=== PATIENT | female | born 1970 | race Caucasian/White ===

== ENCOUNTER 2016-03-31 10:27 | Observation (INO) | payer OTHER, BC ==
[~2016-03-31] VITALS: Ht 157.5 cm; Wt 75.0 kg
[~2016-03-31 10:27] MED LIST: ADDE15TA PO; BENT20TA PO; BUPR300T PO; CLON0.5T PO; CYMB60CA PO; HYDR-3583 PO; LEVO.075 PO; SOMA350T PO; ULTR50TA5 PO
[2016-03-31 10:32] VITALS: BP 112/74; PULSE 79; RESP 18; TEMP 98.4
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
[2016-03-31 12:00] VITALS: BP 118/76; PULSE 78; RESP 17; O2SAT 96
[2016-03-31 13:45] VITALS: BP 124/80; PULSE 74; RESP 18; O2SAT 97
[2016-03-31] MEDS ORDERED: LORazepam 2 MG/ML VIAL IV PUSH ONE (16:30)
[2016-03-31] MEDS ORDERED: NALOXONE HCL 0.4 MG/ML AMP IV PRN (17:45)
[2016-03-31] MEDS ORDERED: PROMETHAZINE INJ 25 MG/ML VIAL IM PRN (18:00)
[2016-03-31] MEDS ORDERED: ACETAMINOPHEN/HYDROcodone 325 MG/5 MG TAB PO PRN (18:00)
[2016-03-31] MEDS: DICYCLOMINE HCL 20 MG TAB PO SCH (18:49)
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
[2016-03-31 20:22] VITALS: BP 139/83; PULSE 84; RESP 18; O2SAT 100
[2016-03-31] MEDS: ONDANSETRON HCL 4 MG/2 ML VIAL IV PRN (20:46)
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
[2016-03-31] MEDS: DULoxetine HCl DR 60 MG CAP PO SCH (23:24)
[2016-03-31] MEDS: buPROPion HCL 150 MG SUSTAINED RELEASE TAB PO SCH (23:24)
[2016-03-31] MEDS: ACETAMINOPHEN/HYDROcodone 325 MG/10 MG TAB PO PRN (23:48)
[2016-04-01] VITALS (7 sets, daily range): BP systolic 103–165; BP diastolic 61–91; PULSE 75–98; RESP 18–20; TEMP 97.4–98.9; O2SAT 96–100
[2016-04-01] MEDS: clonazePAM 0.5 MG TAB PO PRN ×2 (01:31→11:26)
[2016-04-01] MEDS: ACETAMINOPHEN/HYDROcodone 325 MG/10 MG TAB PO PRN ×3 (03:58→22:47)
[2016-04-01] MEDS: LEVOTHYROXINE SODIUM 75 MCG TAB PO SCH (05:28)
[2016-04-01] MEDS: ONDANSETRON HCL 4 MG/2 ML VIAL IV PRN (05:28)
[2016-04-01] MEDS ORDERED: buPROPion HCL 150 MG EXTENDED RELEASE TAB PO SCH (09:00)
[2016-04-01] MEDS ORDERED: INFLUENZA VIRUS VACCINE (QUADRIVALENT) 0.5 ML SYR IM ONE (09:00)
[2016-04-01] MEDS: DICYCLOMINE HCL 20 MG TAB PO SCH ×3 (11:17→17:18)
[2016-04-01] MEDS: PANTOPRAZOLE SOD 40 MG DELAYED RELEASE TAB PO SCH (11:18)
[2016-04-01] MEDS: buPROPion HCL 150 MG SUSTAINED RELEASE TAB PO SCH ×2 (11:19→22:46)
[2016-04-01] MEDS: CARISOPRODOL 350 MG TAB PO PRN ×2 (11:26→17:19)
[2016-04-01] MEDS: DEXTROAMPHETAMINE/AMPHETAMINE 5 MG TAB PO SCH (14:05)
[2016-04-01] MEDS: DULoxetine HCl DR 60 MG CAP PO SCH (22:46)
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
[2016-04-02] MEDS: ALPRAZolam 0.5 MG TAB PO PRN ×2 (00:21→12:44)
[2016-04-02] MEDS: clonazePAM 0.5 MG TAB PO PRN (03:43)
[2016-04-02 03:59] VITALS: BP 105/60; PULSE 80; RESP 19; TEMP 98.1; O2SAT 98
[2016-04-02] MEDS: LEVOTHYROXINE SODIUM 75 MCG TAB PO SCH (06:14)
[2016-04-02 08:00] VITALS: BP 120/70; PULSE 85; RESP 20; TEMP 97.7; O2SAT 97
[2016-04-02] MEDS: buPROPion HCL 150 MG SUSTAINED RELEASE TAB PO SCH (09:16)
[2016-04-02] MEDS: PANTOPRAZOLE SOD 40 MG DELAYED RELEASE TAB PO SCH (09:16)
[2016-04-02] MEDS: DICYCLOMINE HCL 20 MG TAB PO SCH ×2 (09:16→12:44)
[2016-04-02] MEDS: DEXTROAMPHETAMINE/AMPHETAMINE 5 MG TAB PO SCH (09:16)
[2016-04-02 12:00] VITALS: BP 114/74; PULSE 87; RESP 20; TEMP 97.8; O2SAT 97
[2016-04-02] MEDS: ONDANSETRON HCL 4 MG/2 ML VIAL IV PRN (12:44)
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
[2016-04-02 16:00] VITALS: BP 106/59; PULSE 89; RESP 20; TEMP 97.6; O2SAT 99
--- NOTE | 2016-04-02 16:26 | HHI.DCPOC ---
Discharge Care Plan Diagnosis: (1) Adjustment disorder with disturbance of emotion Your Health Problems Are: Anxiety Goals to Promote Your Health * To prevent worsening of your condition and complications * To maintain your health at the optimal level Directions to Meet Your Goals Take your medications as prescribed Follow your dietary instruction Follow activity as directed Keep your appointments as scheduled Take your immunizations and boosters as scheduled If your symptoms worsen call your PCP, if no PCP go to Urgent Care Center or Emergency Room Smoking is Dangerous to Your Health. Avoid second hand smoke Call the 24-hour hour crisis hotline for domestic abuse at Haider Slade MD Apr 02, 2016 16:26
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
== END 2016-04-02 18:35 | disposition home or self-care (01) ==
LOC: NEPC 10:27 → NEDA 18:13 → NEPGCP 23:29 → OBSVTOIN 04-01 23:49 → INTOOBSV 04-01 23:49
PROVIDERS: ADMIT Neurological Surgery; ATTEND Neurological Surgery
DX: S06.6X0A Traumatic subarachnoid hemorrhage without loss of consciousness, initial encounter (principal); F07.81 Postconcussional syndrome; I10 Essential (primary) hypertension; E86.0 Dehydration; E03.9 Hypothyroidism, unspecified; F32.9 Major depressive disorder, single episode, unspecified; F41.9 Anxiety disorder, unspecified; F43.20 Adjustment disorder, unspecified; Z87.442 Personal history of urinary calculi; V89.2XXA Person injured in unspecified motor-vehicle accident, traffic, initial encounter; Z23 Encounter for immunization
CPT/HCPCS: 70551; 90686; 94150; 96374; 97161; 99285; G0378; G8987; G8988; J2060; J2405; Q2038

== ENCOUNTER 2016-04-03 18:12 | Emergency (ER) | payer OTHER, BC ==
[~2016-04-03] VITALS: Ht 157.5 cm; Wt 77.0 kg
[2016-04-03 19:40] VITALS: BP 156/82; PULSE 90; RESP 16; TEMP 98; O2SAT 100
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
[2016-04-03 23:13] VITALS: BP 146/76; PULSE 82; RESP 18; O2SAT 100
== END 2016-04-03 23:14 | disposition home or self-care (01) ==
LOC: NEPE 18:12
DX: F07.81 Postconcussional syndrome (principal); V49.40XA Driver injured in collision with unspecified motor vehicles in traffic accident, initial encounter
CPT/HCPCS: 70450

== ENCOUNTER 2016-06-26 02:33 | Emergency (ER) | payer SELFPAY ==
[~2016-06-26] VITALS: Ht 157.5 cm; Wt 79.0 kg
[~2016-06-26 02:33] MED LIST changes: -BENT20TA PO
[2016-06-26 02:44] VITALS: BP 125/93; PULSE 97; RESP 18; TEMP 98.4; O2SAT 100
[2016-06-26] MEDS ORDERED: SODIUM CHLORIDE 0.9% FLUSH 10 ML FLUSH IV FLUSH PRN (03:00)
[2016-06-26] MEDS ORDERED: SODIUM CHLOR 0.9% 1000 ML INJ 1,000 ML IV SCH (03:00)
[2016-06-26 03:04] VITALS: BP 125/93; PULSE 97; RESP 18; TEMP 98.4; O2SAT 100
--- NOTE | 2016-06-26 03:07 | PD ---
HPI Chief Complaint: abdominal pain, vaginal discharge Time Seen by Provider: 03:00 Travel History International Travel<30 days: No Contact w/Intl Traveler<30days: No Traveled to known affect area: No History of Present Illness HPI 45-year-old female patient with history of hysterectomy, presents to the ER today because she states that she has been having 3 weeks' history of lower abdominal pains which she currently rates at a 8 out of 10, dizziness, mild disorientation, headache, and states that she recently had vaginal discharge and spotting even though she's had a hysterectomy. She has been having some burning on urination as well. She denies any fevers, vomiting, or other issues. Modifying Factors: None Associated Signs & Symptoms: Lower abdominal pains, dizziness, headaches, vaginal discharge and spotting Risk Factors: None PFSH Past Medical History Hx Anticoagulant Therapy: Yes ADD: Yes Anemia: Yes Asthma: No Anxiety: Yes Depression: No Heart Rhythm Problems: No Cancer: No Cardiac Catheterization: Yes (02/2011 NEGATIVE) Cardiovascular Problems: Yes (CATH X2) High Cholesterol: No Chemotherapy: No Chest Pain: Yes Congestive Heart Failure: No COPD: No Cerebrovascular Accident: No Diabetes: No Diminished Hearing: No Diverticulitis: Yes Endocrine: Yes Gastrointestinal Disorders: Yes GERD: No Genitourinary: No Headaches: Yes Hiatal Hernia: No Herniated Disk: Yes Hypertension: Yes Immune Disorder: No Implanted Vascular Access Dvce: Yes Kidney Stones: Yes Musculoskeletal: Yes (Chronic back pain) Neurologic: Yes Psychiatric: Yes Reproductive: Yes (ovarian cyst) Respiratory: No Immunizations Current: No Migraines: Yes Pneumonia: Yes Seizures: No Sleep Apnea: No Thyroid Disease: Yes (Hypothyrodism) Ulcer: No Menopausal: Yes : 0 Para: 0 Miscarriage: 0 : 0 Ovarian Cysts: Yes Dilation and Curettage (D&C): Yes (2004) Past Surgical History Abdominal Surgery: Yes (gallbladder removed 2011) AICD: No Body Medical Devices: Screws in back L5 - S1 Cholecystectomy: Yes (2011) Gynecologic Surgery: Yes (UTERINE ABLATION 03/04, HYSTERECTOMY) Hysterectomy: Yes Oral Surgery: Yes (WISDOM TOOTH) Pacemaker: No Thoracic Surgery: Yes (neck and lower back september 2011) Tonsillectomy: Yes (1991) Other Surgery: Yes (NECK - 2004./TUMOR REMOVED FROM UPPER BACK 2010/LIPOSUCTION ) Social History Alcohol Use: No Tobacco Use: No Substance Use: No Allergies-Medications (Allergen,Severity, Reaction): Coded Allergies: Penicillin (Verified Allergy, Severe, HIVES, 06/26/16) Reported Meds & Prescriptions Reported Meds & Active Scripts Active Reported Hydrocodone-Acetaminophen 10-325 mg Tab 1 Tab PO Q6H PRN Ultram (Tramadol HCl) 50 Mg Tab 50 Mg PO Q4H PRN Cymbalta DR (Duloxetine HCl) 60 Mg Capdr 60 Mg PO HS Soma (Carisoprodol) 350 Mg Tab 350 Mg PO QID PRN Review of Systems Except as stated in HPI: all other systems reviewed are Neg Physical Exam Narrative GENERAL: Anxious appearing middle age white female patient currently none acute distress. Awake and oriented 3. SKIN: Focused skin assessment warm/dry. HEAD: Atraumatic. Normocephalic. EYES: Pupils equal and round. No scleral icterus. No injection or drainage. ENT: No nasal bleeding or discharge. Mucous membranes pink and moist. NECK: Trachea midline. No JVD. CARDIOVASCULAR: Regular rate and rhythm. No murmur appreciated. RESPIRATORY: No accessory muscle use. Clear to auscultation. Breath sounds equal bilaterally. GASTROINTESTINAL: Abdomen soft, mild suprapubic tenderness without guarding or rebound, nondistended. Hepatic and splenic margins not palpable. GENITOURINARY: Normal external genitalia without lesions or erythema. Vaginal vault without blood but notable for greenish drainage. MUSCULOSKELETAL: No obvious deformities. No clubbing. No cyanosis. No edema. NEUROLOGICAL: Awake and alert. No obvious cranial nerve deficits. Motor grossly within normal limits. Normal speech. PSYCHIATRIC: Appropriate mood and affect; insight and judgment normal. Pressures speech. Data Data Last Documented VS Vital Signs Date Time Temp Pulse Resp B/P Pulse Ox O2 Delivery O2 Flow Rate FiO2 06/26/16 05:06 92 18 116/69 100 Room Air 06/26/16 03:04 98.4 Orders Complete Blood Count With Diff (06/26/16 03:00) Comprehensive Metabolic Panel (06/26/16 03:00) Urinalysis - C+S If Indicated (06/26/16 03:00) Iv Access Insert/Monitor (06/26/16 03:00) Ecg Monitoring (06/26/16 03:00) Oximetry (06/26/16 03:00) Sodium Chlor 0.9% 1000 Ml Inj (Ns 1000 M (06/26/16 03:00) Sodium Chloride 0.9% Flush (Ns Flush) (06/26/16 03:00) Ed Urine Pregnancytest Poc (06/26/16 03:00) Drug Screen, Random Urine (06/26/16 03:00) Gc And Chlamydia Pcr (06/26/16 04:02) Wet Prep Profile (06/26/16 04:02) Ceftriaxone Inj (Rocephin Inj) (06/26/16 04:15) Azithromycin Powd Pack (Zithromax Powd P (06/26/16 04:15) Tramadol (Ultram) (06/26/16 04:15) Metronidazole (Flagyl) (06/26/16 04:15) Urine Culture (06/26/16 03:30) Ct Abd/Pel W Iv Contrast(Rout) (06/26/16 04:18) Lorazepam Inj (Ativan Inj) (06/26/16 04:30) Iohexol 350 Inj (Omnipaque 350 Inj) (06/26/16 04:55) Labs Laboratory Tests Test 06/26/16 06/26/16 06/26/16 03:30 03:40 04:08 White Blood Count 9.5 TH/MM3 Red Blood Count 4.20 MIL/MM3 Hemoglobin 12.7 GM/DL Hematocrit 37.6 % Mean Corpuscular Volume 89.7 FL Mean Corpuscular Hemoglobin 30.4 PG Mean Corpuscular Hemoglobin 33.8 % Concent Red Cell Distribution Width 12.8 % Platelet Count 228 TH/MM3 Mean Platelet Volume 7.4 FL Neutrophils (%) (Auto) 63.0 % Lymphocytes (%) (Auto) 24.7 % Monocytes (%) (Auto) 11.4 % Eosinophils (%) (Auto) 0.7 % Basophils (%) (Auto) 0.2 % Neutrophils # (Auto) 6.0 TH/MM3 Lymphocytes # (Auto) 2.3 TH/MM3 Monocytes # (Auto) 1.1 TH/MM3 Eosinophils # (Auto) 0.1 TH/MM3 Basophils # (Auto) 0.0 TH/MM3 CBC Comment DIFF FINAL Differential Comment Urine Color YELLOW Urine Turbidity SLIGHT Urine pH 5.5 Urine Specific [place] 1.028 Urine Protein TRACE mg/dL Urine Glucose (UA) NEG mg/dL Urine Ketones NEG mg/dL Urine Occult Blood TRACE Urine Nitrite NEG Urine Bilirubin NEG Urine Leukocyte Esterase SMALL Urine RBC 0-3 /hpf Urine WBC 50-99 /hpf Urine Squamous Epithelial 0-5 /hpf Cells Urine Calcium Oxalate Crystals FEW /hpf Urine Bacteria OCC /hpf Urine Mucus FEW /lpf Microscopic Urinalysis Comment CULTURE INDICATED Sodium Level 141 MEQ/L Potassium Level 3.6 MEQ/L Chloride Level 105 MEQ/L Carbon Dioxide Level 24.8 MEQ/L Anion Gap 11 MEQ/L Blood Urea Nitrogen 12 MG/DL Creatinine 0.85 MG/DL Estimat Glomerular Filtration 72 ML/MIN Rate Random Glucose 92 MG/DL Calcium Level 9.0 MG/DL Total Bilirubin 0.2 MG/DL Aspartate Amino Transf 11 U/L (AST/SGOT) Alanine Aminotransferase 20 U/L (ALT/SGPT) Alkaline Phosphatase 66 U/L Total Protein 7.2 GM/DL Albumin 3.6 GM/DL Urine Opiates Screen NEG Urine Barbiturates Screen NEG Urine Amphetamines Screen NEG Urine Benzodiazepines Screen NEG Urine Cocaine Screen NEG Urine Cannabinoids Screen NEG Clue Cells (Wet Prep) NONE SEEN Vaginal Trichomonas (Wet Prep) NONE SEEN Vaginal Yeast (Wet Prep) NONE SEEN MDM Medical Decision Making Medical Screen Exam Complete: Yes Emergency Medical Condition: Yes Medical Record Reviewed: Yes Interpretation(s) Laboratory Tests Test 06/26/16 06/26/16 03:30 03:40 Monocytes (%) (Auto) 11.4 % (0.0-8.0) Monocytes # (Auto) 1.1 TH/MM3 (0-0.9) Urine Occult Blood TRACE (NEG) Urine Leukocyte Esterase SMALL (NEG) Urine WBC 50-99 /hpf (0-5) Urine Calcium Oxalate Crystals FEW /hpf (NONE) Urine Bacteria OCC /hpf (NONE) Urine Mucus FEW /lpf (OCC) Estimat Glomerular Filtration 72 ML/MIN (>89) Rate Aspartate Amino Transf 11 U/L (15-37) (AST/SGOT) Last 24 hours Impressions Abdomen/Pelvis CT 06/26/16 0418 Signed Impressions: Service Date/Time: Sunday, June 26, 2016 04:46 - CONCLUSION: 1. No acute abnormality. 2. Supracervical hysterectomy. There is prominence of the cervix which is unchanged from the prior study. 3. Prior cholecystectomy. Henry Bhakta Jr., MD Differential Diagnosis Lightheadedness, vaginal discharge, urinary symptoms, lower abdominal painsUTI versus vaginitis versus significant anemia versus sepsis versus dehydration versus metabolic issues Narrative Course Pelvic exam is concerning for vaginitis although patient should not be able to get a PID considering she has had a hysterectomy. Patient admits that last week she did have a partner but it was protected sex. At this point, my plan would be to treat her empirically for possible vaginitis. Lab work also shows UTI which I plan to treat. CAT scan did not reveal any signs of acute intra- abdominal processes. There is some prominence of the cervix noted on the CAT scan and on my evaluation, patient is having significant discomfort on exam and exam is limited. I have referred her to follow-up with [facility] at this point for further evaluation once her infection has been treated. She should return for any worsening in pain, new symptoms as needed. The plan has been discussed with her and she states understanding. Diagnosis Primary Impression: Vaginal discharge Additional Impression: UTI (urinary tract infection) Med/Other Pt SpecificInfo: Prescription(s) given Scripts Nitrofurantoin Monohydrate Macrocrystals (Macrobid)100 Mg [id number] Mg PO BID 7 Days Ref 0 Prov:Rodríguez Zuñiga MD 06/26/16 Disposition: DISCHARGE HOME Condition: Stable Rodríguez Zuñiga MD Jun 26, 2016 03:07
[2016-06-26 03:08] VITALS: RESP 18; O2SAT 100
[2016-06-26 03:37] LABS: BLOOD, URINE TRACE (NEG); GLUCOSE,URINE NEG (NEG); KETONE, URINE NEG (NEG); NITRITE,URINE NEG (NEG); PH, URINE 5.5 (5.0-8.5)
[2016-06-26 03:50] VITALS: BP 139/85; PULSE 93; RESP 18; O2SAT 100
[2016-06-26 03:55] LABS: BARBITURATES, URINE NEG (NEG)
[2016-06-26 03:56] LABS: AMPHETAMINE, URINE NEG (NEG); COCAINE, URINE NEG (NEG)
[2016-06-26 04:06] LABS: CHLORIDE 105 MEQ/L (98-107); POTASSIUM 3.6 MEQ/L (3.5-5.1); SODIUM (NA) 141 MEQ/L (136-145)
[2016-06-26 04:08] LABS: URINE COLOR YELLOW (YELLW/STRAW)
[2016-06-26 04:09] LABS: BACTERIA, URINE OCC /hpf; CALCIUM OXALATE CRYSTALS,URINE FEW /hpf; MUCUS URINE FEW /lpf (OCC); RBC, URINE 0-3 /hpf (0-3); SQUAMOUS EPITHELIAL CELL URINE 0-5 /hpf (0-5)
[2016-06-26 04:10] LABS: ANION GAP 11 MEQ/L (5-15); BICARBONATE 24.8 MEQ/L (21.0-32.0); BLOOD UREA NITROGEN 12 MG/DL (7-18)
[2016-06-26 04:10] LABS: COMMENT (UR) CULTURE INDICATED; CULTURE IF INDICATED CULTURE INDICATED
[2016-06-26 04:13] LABS: BASOPHIL % 0.2 % (0.0-2.0); EOSINOPHIL # 0.1 TH/MM3 (0-0.4); EOSINOPHIL % 0.7 % (0.0-4.0); HEMATOCRIT 37.6 % (35.0-46.0); HEMO FLAGS DIFF FINAL; LYMPH % 24.7 % (9.0-44.0); LYMPHOCYTE # 2.3 TH/MM3 (1.0-4.8); MEAN CELL VOLUME 89.7 FL (80.0-100.0); MEAN CORPUSCULAR HEMOGLOBIN 30.4 PG (27.0-34.0); MEAN CORPUSCULAR HGB CONC 33.8 % (32.0-36.0); MONO % 11.4 % (0.0-8.0); PLATELET COUNT 228 TH/MM3 (150-450); RED CELL DISTRIBUTION WIDTH 12.8 % (11.6-17.2); WHITE BLOOD COUNT 9.5 TH/MM3 (4.0-11.0)
[2016-06-26 04:13] LABS: ALT (GPT) 20 U/L (10-53); AST (GOT) 11 U/L (15-37); GLOMERULAR FILTRATION RATE 72 ML/MIN (>89)
[2016-06-26 04:14] LABS: TOTAL BILIRUBIN ADULT 0.2 MG/DL (0.2-1.0)
[2016-06-26] MEDS ORDERED: traMADol HCL 50 MG TAB PO ONE (04:15)
[2016-06-26] MEDS ORDERED: metroNIDAZOLE 500 MG TAB PO ONE (04:15)
[2016-06-26] MEDS ORDERED: cefTRIAXone INJ 250 MG in SODIUM CHLORIDE 0.9% INJ 100 ML IV ONE (04:15)
[2016-06-26] MEDS ORDERED: AZITHROMYCIN PWD FOR SUSP 1 GM PACKET PO ONE (04:15)
[2016-06-26 04:16] LABS: ALKALINE PHOSPHATASE 66 U/L (45-117)
[2016-06-26] MEDS ORDERED: LORazepam 2 MG/ML VIAL IV PUSH ONE (04:30)
[2016-06-26] MEDS ORDERED: IOHEXOL 350 MG/ML 10 ML VIAL (for RAD DIAG) IV ONE (04:55)
[2016-06-26 05:06] VITALS: BP 116/69; PULSE 92; RESP 18; O2SAT 100
--- NOTE | 2016-06-26 05:12 | RADHPO ---
EXAM DATE/TIME: 06/26/2016 04:46 [facility] COMPARISON: CT ABDOMEN & PELVIS W CONTRAST, March 24, 2016, 20:59. INDICATIONS : Lower abdominal pain for three weeks. IV CONTRAST: 96 cc Omnipaque 350 (iohexol) IV ORAL CONTRAST: No oral contrast ingested. RADIATION DOSE: 12.83 CTDIvol (mGy) MEDICAL HISTORY : Diverticulitis. Renal calculi. SURGICAL HISTORY : Cholecystectomy. ENCOUNTER: Initial ACUITY: 3 weeks PAIN SCALE: 7/10 LOCATION: Bilateral lower quadrant TECHNIQUE: Volumetric scanning of the abdomen and pelvis was performed. Using automated exposure control and ad justment of the mA and/or kV according to patient size, radiation dose was kept as low as reasonably achievable to obtain optimal diagnostic quality images. FINDINGS: LOWER LUNGS: The visualized lower lungs are clear. LIVER: Homogeneous density without lesion. There is no dilation of the biliary tree. Gallbladder is surgica lly absent. SPLEEN: Normal size without lesion. PANCREAS: Within normal limits. KIDNEYS: Normal in size and shape. There is no mass, stone or hydronephrosis. ADRENAL GLANDS: Within normal limits. VASCULAR: There is no aortic aneurysm. BOWEL/MESENTERY: The stomach, small bowel, and colon demonstrate no acute abnormality. There is no free intraperitone al air or fluid. ABDOMINAL WALL: Within normal limits. RETROPERITONEUM: There is no lymphadenopathy. BLADDER: No wall thickening or mass. REPRODUCTIVE: A supracervical hysterectomy is noted. The cervix remains prominent but unchanged the prior study. INGUINAL: There is no lymphadenopathy or hernia. MUSCULOSKELETAL: Posterior fixation involving L4, L5, and S1. CONCLUSION: 1. No acute abnormality. 2. Supracervical hysterectomy. There is prominence of the cervix which is unchanged from the prior st udy. 3. Prior cholecystectomy. Henry Bhakta Jr., MD on June 26, 2016 at 5:07 Board Certified Radiologist. This report was verified electronically.
[2016-06-26] MEDS ORDERED: MACR100C2 PO (05:28)
[2016-06-26 05:42] VITALS: BP 105/65
[2016-06-26 11:53] LABS: CHLAMYDIA PCR NOT DETECTED (NOT DETECT); NEISSERIA PCR NOT DETECTED (NOT DETECT)
== END 2016-06-26 05:45 | disposition home or self-care (01) ==
LOC: PHED 02:33
DX: N89.8 Other specified noninflammatory disorders of vagina (principal); D64.9 Anemia, unspecified; F41.9 Anxiety disorder, unspecified; K57.92 Diverticulitis of intestine, part unspecified, without perforation or abscess without bleeding; K21.9 Gastro-esophageal reflux disease without esophagitis; I10 Essential (primary) hypertension; Z79.899 Other long term (current) drug therapy
CPT/HCPCS: 74177; 80053; 80307; 81001; 84703; 85025; 87086; 87210; 87491; 87591; 96365; 96375; 99284; J0696; J2060; J7030; Q9967

== ENCOUNTER 2016-06-26 18:08 | Emergency (ER) | payer SELFPAY ==
[~2016-06-26 18:08] MED LIST changes: +MACR100C2 PO
[2016-06-26 18:19] VITALS: BP 143/88; PULSE 95; RESP 16; TEMP 98.8; O2SAT 99
--- NOTE | 2016-06-26 18:31 | PD ---
Physical Exam Date Seen by Provider: Jun 26, 2016 Time Seen by Provider: 18:30 Narrative 45 YOWF BY EMS FOR ABD PAIN AND MEMORY LOSS. SEEN [facility]. AWAITING BED PLACEMENT Data Data Last Documented VS Vital Signs Date Time Temp Pulse Resp B/P Pulse Ox O2 Delivery O2 Flow Rate FiO2 06/26/16 18:19 98.8 95 16 143/88 99 MDM Medical Record Reviewed: Yes Supervised Visit with LEROY: Yes Faisal Byers Jun 26, 2016 18:31
== END 2016-06-26 21:40 | disposition left against medical advice (07) ==
LOC: NETRI 18:08
DX: R10.9 Unspecified abdominal pain (principal); Z53.21 Procedure and treatment not carried out due to patient leaving prior to being seen by health care provider; R41.3 Other amnesia
CPT/HCPCS: 99283

== ENCOUNTER 2016-06-28 06:44 | Emergency (ER) | payer SELFPAY ==
[~2016-06-28] VITALS: Ht 157.5 cm; Wt 79.0 kg
[~2016-06-28 06:44] MED LIST changes: -ADDE15TA PO; -BUPR300T PO; -CLON0.5T PO; -LEVO.075 PO
[2016-06-28 06:54] VITALS: BP 123/92; PULSE 106; RESP 16; TEMP 99; O2SAT 100
[2016-06-28] MEDS ORDERED: KETOROLAC TROMETHAMINE 60 MG/2 ML (IM) VIAL IM ONE (08:15)
[2016-06-28] MEDS ORDERED: hydrOXYzine PAMOATE 25 MG CAP PO ONE (08:30)
--- NOTE | 2016-06-28 08:31 | PD ---
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 She states she has an appointment with one in [place]. She states that she is also having discharge. She states she did not take her medication after her took it after reading her discharge paperwork. She denies other concurrent complaints. She denies specific modifying factors but states it feels like needles. Severity is severe per patient. PFSH Past Medical History Hx Anticoagulant Therapy: Yes ADD: Yes Anemia: Yes Asthma: No Anxiety: Yes Depression: No Heart Rhythm Problems: No Cancer: No Cardiac Catheterization: Yes (02/2011 NEGATIVE) Cardiovascular Problems: Yes (hx of htn not on meds) High Cholesterol: No Chemotherapy: No Chest Pain: Yes Congestive Heart Failure: No COPD: No Cerebrovascular Accident: No Diabetes: No Diminished Hearing: No Diverticulitis: Yes Endocrine: Yes Gastrointestinal Disorders: Yes GERD: No Genitourinary: No Headaches: Yes Hiatal Hernia: No Herniated Disk: Yes Hypertension: No Immune Disorder: No Implanted Vascular Access Dvce: Yes Kidney Stones: Yes Musculoskeletal: Yes (Chronic back pain) Neurologic: Yes Psychiatric: Yes Reproductive: Yes (ovarian cyst) Respiratory: No Immunizations Current: Yes Migraines: Yes Pneumonia: Yes Seizures: No Sleep Apnea: No Thyroid Disease: Yes (Hypothyrodism) Ulcer: No ?: Not Menopausal: Yes : 0 Para: 0 Miscarriage: 0 : 0 Ovarian Cysts: Yes Dilation and Curettage (D&C): Yes (2004) Past Surgical History Abdominal Surgery: Yes (gallbladder removed 2011) AICD: No Body Medical Devices: Screws in back L5 - S1 Cholecystectomy: Yes (2011) Gynecologic Surgery: Yes (UTERINE ABLATION 03/04, HYSTERECTOMY) Hysterectomy: Yes Oral Surgery: Yes (WISDOM TOOTH) Pacemaker: No Thoracic Surgery: Yes (neck and lower back september 2011) Tonsillectomy: Yes (1991) Other Surgery: Yes (NECK - 2004./TUMOR REMOVED FROM UPPER BACK 2010/LIPOSUCTION ) Social History Alcohol Use: No Tobacco Use: No Substance Use: No Allergies-Medications (Allergen,Severity, Reaction): Coded Allergies: Penicillin (Verified Allergy, Severe, HIVES, 06/28/16) Reported Meds & Prescriptions Reported Meds & Active Scripts Active Macrobid (Nitrofurantoin Monoh/Nitrofur Macro) 100 Mg Cap 100 Mg PO BID 7 Days Macrobid (Nitrofurantoin Monoh/Nitrofur Macro) 100 Mg Cap 100 Mg PO BID 7 Days Reported Hydrocodone-Acetaminophen 10-325 mg Tab 1 Tab PO Q6H PRN Ultram (Tramadol HCl) 50 Mg Tab 50 Mg PO Q4H PRN Cymbalta DR (Duloxetine HCl) 60 Mg Capdr 60 Mg PO HS Soma (Carisoprodol) 350 Mg Tab 350 Mg PO QID PRN Review of Systems Except as stated in HPI: all other systems reviewed are Neg Physical Exam Narrative GENERAL: Well-nourished, well-developed patient. Uncomfortable SKIN: Warm and dry. HEAD: Normocephalic and atraumatic. EYES: No injection or drainage. ENT: No nasal drainage noted. NECK: Supple, trachea midline. CARDIOVASCULAR: Regular rate and rhythm RESPIRATORY: Breath sounds equal bilaterally. No accessory muscle use. GASTROINTESTINAL: Abdomen soft, mild tenderness suprapubic area, nondistended. NEUROLOGICAL: Awake and alert. Motor and sensory grossly within normal limits. Normal speech. Data Data Last Documented VS Vital Signs Date Time Temp Pulse Resp B/P Pulse Ox O2 Delivery O2 Flow Rate FiO2 06/28/16 07:16 16 06/28/16 06:54 99.0 106 123/92 100 Orders Urinalysis - C+S If Indicated (06/28/16 07:35) Ed Urine Pregnancytest Poc (06/28/16 07:35) Ketorolac Inj (Toradol Inj) (06/28/16 08:15) Us Pelvis Comp W Doppler (06/28/16 08:15) Hydroxyzine Pamoate (Vistaril) (06/28/16 08:30) Urine Culture (06/28/16 10:15) Labs Laboratory Tests Test 06/28/16 10:15 Urine Collection Type CLEAN CATCH Urine Color YELLOW Urine Turbidity CLEAR Urine pH 6.0 Urine Specific [place] 1.021 Urine Protein NEG mg/dL Urine Glucose (UA) NEG mg/dL Urine Ketones TRACE mg/dL Urine Occult Blood NEG Urine Nitrite NEG Urine Bilirubin NEG Urine Leukocyte Esterase SMALL Urine RBC 0-3 /hpf Urine WBC 15-19 /hpf Urine Squamous Epithelial > 8 /hpf Cells Urine Calcium Oxalate Crystals MOD /hpf Urine Bacteria RARE /hpf Microscopic Urinalysis Comment CULTURE INDICATED Urine Collection Time 10:15 [facility] Medical Decision Making Medical Screen Exam Complete: Yes Emergency Medical Condition: Yes Medical Record Reviewed: Yes (past history confirm, 2 days ago had negative wet prep, gonorrhea Chlamydia, blood work without emergent findings, urine culture is negative; CT scan showed prominent cervix, she received treatment for vaginitis and sent home on Macrobid) Interpretation(s) Last 24 hours Impressions Pelvis Ultrasound 06/28/16 0815 Signed Impressions: Service Date/Time: Sunday, June 28, 2016 10:00 - CONCLUSION: 1. Benign 1 cm left ovarian cyst. 2. Otherwise negative post hysterectomy. Navjot Lamb MD ua contamination versus infection-will treat Differential Diagnosis UTI, stone, cyst, cervicitis Narrative Course Will check UA and pelvic ultrasound for completion of workup given significant pain and dose with Toradol and reevaluate Patient requesting something to help calm her down will dose with Vistaril and reevaluate On reassessment with nurse, patient is feeling better,Patient denies any new complaints, all questions answered. Patient knows that follow up is incumbent on them and to return to the emergency room immediately if new or worsening symptoms develop. Patient given strict return precautions, vitals reviewed and are normal, agrees to further workup as an outpatient. 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
--- NOTE | 2016-06-28 10:20 | RADHPO ---
EXAM DATE/TIME: 06/28/2016 10:00 [facility] COMPARISON: US PELVIS,COMP,W DOPPLER, February 22, 2015, 21:23. INDICATIONS : Pelvic pain and vaginal bleeding with hysterectomy. MEDICAL HISTORY : Hypothyroidism. Renal calculi. Syncope. Diverticulitis. Ovarian cysts. Chronic back pain. Anemia. SURGICAL HISTORY : Hysterectomy. Tonsillectomy. Cholecystectomy. Cardiac cath. Uterine ablation. D&C. Right knee arthros copy. Back surgery. Liposuction. ENCOUNTER: Subsequent ACUITY: 2 weeks PAIN SCORE: 6/10 LOCATION: Bilateral pelvis MEASUREMENTS: UTERUS: Surgically absent RIGHT OVARY: 2.2 x 1.1 x 1.2 cm LEFT OVARY: 3.6 x 1.5 x 2.5 cm FINDINGS: UTERUS: Nonvisualized characteristic of the reported history of hysterectomy RIGHT OVARY: Ovary contains no mass or significant cystic lesion. LEFT OVARY: Ovary contains no mass. A small, 1.1 x 0.8 x 0.7 cm benign-appearing cyst is seen in the left o vary. MISCELLANEOUS: No free fluid. CONCLUSION: 1. Benign 1 cm left ovarian cyst. 2. Otherwise negative post hysterectomy. Navjot Lamb MD on June 28, 2016 at 10:16 Board Certified Radiologist. This report was verified electronically.
[2016-06-28 10:29] LABS: BLOOD, URINE NEG (NEG); GLUCOSE,URINE NEG (NEG); KETONE, URINE TRACE mg/dL (NEG); NITRITE,URINE NEG (NEG)
[2016-06-28 10:35] LABS: BACTERIA, URINE RARE /hpf; CALCIUM OXALATE CRYSTALS,URINE MOD /hpf; COMMENT (UR) CULTURE INDICATED; CULTURE IF INDICATED CULTURE INDICATED; METHOD OF COLLECTION CLEAN CATCH; RBC, URINE 0-3 /hpf (0-3); SQUAMOUS EPITHELIAL CELL URINE > 8 /hpf (0-5); URINE COLOR YELLOW (YELLW/STRAW); WBC, URINE 15-19 /hpf (0-5)
[2016-06-28] MEDS ORDERED: MACR100C2 PO (10:47)
[2016-06-28 11:12] VITALS: BP 101/58
== END 2016-06-28 11:13 | disposition home or self-care (01) ==
LOC: PHED 06:44
DX: R10.30 Lower abdominal pain, unspecified (principal); N89.8 Other specified noninflammatory disorders of vagina; D64.9 Anemia, unspecified; Z79.01 Long term (current) use of anticoagulants
CPT/HCPCS: 76856; 81001; 84703; 87086; 93975; 96372; 99284; J1885; Q0177